=== PATIENT | male | born 1980 | race Caucasian/White ===

== ENCOUNTER 2025-06-29 14:06 | Emergency (ER) | payer OTHER ==
[~2025-06-29] VITALS: Ht 185.4 cm; Wt 98.0 kg
[2025-06-29] MEDS ORDERED: CEPHALEXIN MONOHYDRATE 500 MG CAP PO ONE (15:15)
[2025-06-29] MEDS ORDERED: HYDROCODONE/ACETA 7.5/325 TAB PO ONE (15:15)
[2025-06-29] MEDS ORDERED: HYDROCODON-ACE1 EA11 PO (16:08)
[2025-06-29] MEDS ORDERED: CEPHALEXIN500 M1 PO (16:08)
[2025-06-29 16:20] VITALS: BP 129/97
== END 2025-06-29 16:20 | disposition home or self-care (01) ==
LOC: ED 14:06
DX: K61.1 Rectal abscess (principal); F17.200 Nicotine dependence, unspecified, uncomplicated
CPT/HCPCS: 46040; 99283-25; A9270